=== PATIENT | female | born 1950 | race Caucasian/White ===

== ENCOUNTER 2023-02-16 10:15 | Emergency (ER) | payer MEDICARE, SELFPAY ==
[2023-02-16 10:25] VITALS: BP 202/95; PULSE 101; RESP 20; TEMP 37.1; O2SAT 96; BMI 25.8
[2023-02-16] MEDS: LORazepam 0.5 MG TABLET 1 MG PO (10:35)
[2023-02-16 10:55] VITALS: BP 170/81; PULSE 72
--- NOTE | 2023-02-16 12:53 | ED.ANXIETY ---
HPI - Anxiety General Chief Complaint: Anxiety Stated Complaint: Panic Attack Time Seen by Provider: 02/16/23 12:52 Source: patient, RN notes reviewed, old records reviewed and other (boyfriend) Mode of arrival: EMS Limitations: no limitations History of Present Illness HPI narrative: 72-year-old female with history of hypertension on metoprolol and trazodone PRN for insomnia. Patient presents today with describing anxious feelings and shaking all over. She is in process of closing on a house today, she states something happened and the deal fell through. She has already shift all of her personal belongings [place] 7000 [place] Patient states this is very stressful financially she is feeling very anxious. Patient denies SI or HI. She is not on any daily medications for anxiety otherwise. She has boyfriend at bedside and multiple friends in the community. She had not had her metoprolol today and was given a dose here. Related Data Previous Rx's Medication Instructions Recorded lorazepam 1 mg tablet (Ativan) 0.5 mg (1/2 x 1 mg) PO TID PRN 02/16/23 anxiety #10 tabs Review of Systems Review of Systems ROS Unobtainable: All systems reviewed & are unremarkable except as noted in HPI and below Exam Narrative Exam Narrative: GENERAL: Alert and oriented x three, anxious female in mild distress. HEENT: Head normocephalic, atraumatic, EOMI, pupils reactive, face symmetric, moist mucous membranes NECK: Supple, full range of motion CARDIOVASCULAR: Regular rate and rhythm without murmurs, rubs or gallops. RESPIRATORY: Breath sounds equal bilaterally, no wheezes rales or rhonchi. ABDOMEN: Soft, nontender. Normoactive bowel sounds all 4 quadrants. No guarding or rebound, rigidity, no mass : No CVA tenderness EXTREMITIES: Normal range of motion, no clubbing or edema. Neurovascularly intact NEUROLOGICAL: Cranial nerves II through XII grossly intact. Moving all extremities SKIN: Warm, dry, no petechiae, no rashes or lesions. PSYCH: Endorses feelings of anxiety, patient denies SI/HI. Becomes quite tearful and anxious when discussing her current situation. Initial Vital Signs Initial Vital Signs: Vital Signs Temperature 98.7 F 02/16/23 10:25 Pulse Rate 101 H 02/16/23 10:25 Respiratory Rate 20 12/22/23 10:25 Blood Pressure 202/95 H 02/16/23 10:25 Pulse Oximetry 96 02/16/23 10:25 Oxygen Delivery Method Room Air 02/16/23 10:25 Course Orders Ordered: ED Orders 02/16/23 10:32 Consult to CASTING SUPERVISOR - Agricultural Equipment Operator Stat 02/16/23 13:10 Urine Culture Stat Urine Microscopic Stat Discontinued Medications Lorazepam (Lorazepam 0.5 Mg Tablet) 1 mg PO NOW ONE Stop: 02/16/23 10:33 Last Admin: 02/16/23 10:35 Dose: 1 mg Documented By: MICHAEL Vital Signs Vital signs: Vital Signs - 8 hr 02/16/23 10:25 02/16/23 10:55 02/16/23 13:15 Temperature 98.7 F Pulse Rate 101 H 72 71 Respiratory Rate 20 Blood Pressure 202/95 H 170/81 H 199/86 H Pulse Oximetry 96 Oxygen Delivery Method Room Air 02/16/23 13:58 Temperature Pulse Rate 68 Respiratory Rate 16 Blood Pressure 168/78 H Pulse Oximetry 98 Oxygen Delivery Method Room Air MDM - Anxiety Lab Data Labs: Lab Results 02/16/23 Range/Units 13:10 Urine RBC None seen (0-5/HPF) Urine WBC 1-5/hpf (0-5/HPF) Ur Squamous Epith Cells 0-1 /hpf (0-5/HPF) Urine Bacteria Many (>30) H (None) Urine Dip Bedside Urine Glucose Negative Bedside Urine Bilirubin - Negative Bedside Urine Ketone - Negative Urine Specific [place] 1.010 Bedside Urine Occult Blood - Negative Bedside Urine pH 6.0 Bedside Urine Protein - Negative Bedside Urine Urobilinogen - Negative Bedside Urine Nitrite + Positive Bedside Urine Leukocytes ++ 125 Esterase MDM Narrative Medical decision making narrative: 72-year-old female with what appears to be likely panic attack. Patient received quite distressing financial news earlier today. She did have a dose of oral Ativan which she found helpful. She is still express is feelings of anxiety we will give a short course of medication. No other red flag symptoms. Social work did meet with her we will give some crisis options did discuss if there is any recommendations for financial counseling. Patient does have good support [place] Discussed return precautions all questions answered. Discharge Plan Departure Patient Disposition: Home Clinical Impression: Acute anxiety Activity Restrictions/Additional Instructions: Please follow up with primary care or with the resources included by social work. You may take Ativan 1 tablet every 8 hours as needed for anxiety. This medication can make you sleepy do not drive, perform hazardous activities or make any major decisions while taking it. If you feel you need a longer course of this medication please follow up with primary care for alternative options that can be taken daily. Prescription sent to [facility] in [place]. If you're feeling suicidal or having suicidal thoughts, contact the suicide hotline (this is also a number for self referral for counseling services): . Please return for new or worsening symptoms thoughts of harming yourself or others, new chest pain, shortness of breath, persistent vomiting, passing out or other new or concerning changes. Prescriptions: New lorazepam [Ativan] 1 mg tablet 0.5 mg PO TID PRN (Reason: anxiety) Qty: 10 0RF Stand Alone Forms: Patient Portal/API
[2023-02-16 13:15] VITALS: BP 199/86; PULSE 71
[2023-02-16 13:36] LABS: Bacteria Urine Many (>30); RBC Urine None Seen (0-5/HPF); Squamous Epithelial Cell Urine 0-1 /HPF (0-5/HPF); WBC Urine 1-5/HPF (0-5/HPF)
--- NOTE | 2023-02-16 13:52 | CM.SWNOTE ---
ED CONVERTER SUPERVISOR Note CONVERTER SUPERVISOR receives consult due to patient's anxiety. Patient is 72 y/o female who presents to ED via POV with friend. Patient endorses she thought she was closing on selling her house and she shipped all of her belongings to [place] where she plans to move. Patient presents with emotional distress and is having difficulty coping with the situation due to the money she has spent in the moving process and concerns for going into debt. CONVERTER SUPERVISOR meets with patient, patient presents as A/Ox4. Patient endorses she has several friends in the area and friends and family in the [place] area. Patient endorses that all of her belongings are in route to [place]. CONVERTER SUPERVISOR discusses plans to ask friends for support to problem solve and brainstorm next steps. Patient presents in a place of distress and anger that the indented plant buyer backed out on their plan to buy the house. Patient denies SI, patient endorses hx of difficult life stressors that she has had to overcome. Patient endorses her goal was to buy a house outright in [place] with the profit of this house sold. Patient presents with concern for moving forward. CONVERTER SUPERVISOR continues to suggest getting support from all of her friends in both places to assist in navigating next steps. Patient states she called an estate attorney earlier this morning. CONVERTER SUPERVISOR provides patient with crisis resources, free legal resources and lists of MH providers that accept her insurance. Patient is safe to d/c to home, ED provider prescribes PRN ativan and recommends f/u with PCP. Plan: patient to d/c to home with friend, patient to utilize resources provided and support from friends during this time. DEYSI Keita
[2023-02-16 13:58] VITALS: BP 168/78; PULSE 68; RESP 16; O2SAT 98
== END 2023-02-16 13:59 | disposition home or self-care (01) ==
PROVIDERS: Emergency Provider Emergency Medicine
DX: F41.9 Anxiety disorder, unspecified (principal)
CPT/HCPCS: 81003; 81015; 87077; 87086; 87186; 99283